=== PATIENT | male | born 1970 | race Caucasian/White ===

== ENCOUNTER 2019-11-24 13:20 | Inpatient (IN) | payer OTHER ==
[~2019-11-24] VITALS: Ht 175.3 cm; Wt 69.1 kg
[2019-11-24] MEDS ORDERED: RISP1 PO (14:29)
[2019-11-24 14:41] LABS: BASOPHILS % (AUTO) 0.6 % (0.0-2.0); EOSINOPHILS % (AUTO) 6.4 % (1.0-6.0); HEMATOCRIT 42.9 % (41-53); HEMOGLOBIN 14.4 g/dL (13.5-17.5); LYMPHOCYTES # (AUTO) 1.9 K/uL (1.0-4.8); LYMPHOCYTES % (AUTO) 30.4 % (22.0-44.0); MEAN CORPUSCULAR HEMOGLOBIN 31.4 pg (26.0-34.0); MEAN CORPUSCULAR HGB CONC 33.6 G/dL (31.0-37.0); MEAN CORPUSCULAR VOLUME 93 fL (80-100); MONOCYTES # (AUTO) 0.5 K/uL (0.1-1.0); MONOCYTES % (AUTO) 8.3 % (2.0-9.0); NEUTROPHILS # (AUTO) 3.5 K/uL (1.8-7.7); NEUTROPHILS % (AUTO) 54.3 % (40.0-70.0); PLATELET COUNT (AUTO) 231 K/uL (150-450); RED CELL DISTRIBUTION WIDTH 13.1 % (11.5-14.5)
[2019-11-24] MEDS ORDERED: ACETAMINOPHEN 325 MG TABLET PO PRN (14:45)
[2019-11-24] MEDS ORDERED: ONDANSETRON HCL 4 MG/2 ML VIAL IVP PRN ×2 (14:45→21:45)
[2019-11-24 14:49] LABS: ANION GAP 4 mmol/L (8-16); CARBON DIOXIDE 31 mmol/L (22-29); CHLORIDE 102 mmol/L (98-107); GLOMERULAR FILTR. RATE CALC > 60 mL/min (>60); GLUCOSE,RANDOM 104 mg/dL (70-110); POTASSIUM 4.5 mmol/L (3.5-5.1); SODIUM SERUM 137 mmol/L (136-145); UREA NITROGEN, BLOOD 14 mg/dL (7-18)
[2019-11-24 14:55] LABS: ALANINE AMINOTRANSFERASE 24 U/L (12-78); ALBUMIN 3.8 g/dL (3.4-5.0); ALKALINE PHOSPHATASE 100 U/L (46-116); ASPARTATE AMINOTRANSFERASE 18 U/L (15-37); BILIRUBIN,TOTAL 0.2 mg/dL (0.1-1.0); TOTAL PROTEIN, SERUM 7.7 g/dL (6.4-8.2)
[2019-11-24] MEDS ORDERED: INFLUENZA VIRUS VACCINE QVS 2019-20 (3YR+)/PF 60 MCG/0.5 ML SYRINGE IM ONE (16:15)
[2019-11-24 16:27] VITALS: BP 138/102
[2019-11-24 18:24] LABS: AMPHET/METH SCREEN,URINE NEGATIVE (NEGATIVE); BARBITURATE SCREEN, URINE NEGATIVE (NEGATIVE); BENZODIAZEPINES SCREEN,URINE NEGATIVE (NEGATIVE); CANNABINOID SCREEN,URINE NEGATIVE (NEGATIVE); COCAINE SCREEN,URINE NEGATIVE (NEGATIVE); METHADONE SCREEN, URINE NEGATIVE (NEGATIVE); OPIATE SCREEN,URINE NEGATIVE (NEGATIVE); PHENCYCLIDINE SCREEN,URINE NEGATIVE (NEGATIVE)
[2019-11-24 20:42] VITALS: BP 111/64
[2019-11-24] MEDS ORDERED: MAGNESIUM SULFATE 2 GM/WATER 50 ML IV PRN (21:45)
[2019-11-24] MEDS ORDERED: POTASSIUM CHL 10 MEQ/WATER 50 ML IV PRN (21:45)
[2019-11-24] MEDS ORDERED: 0.9% SODIUM CHLORIDE 10 ML SYRINGE IVP PRN (21:45)
[2019-11-24] MEDS ORDERED: POTASSIUM CHLORIDE 20 MEQ ER TABLET PO PRN (21:45)
[2019-11-24] MEDS ORDERED: MAGNESIUM SULFATE 4 GM/WATER 100 ML IV PRN (21:45)
[2019-11-24] MEDS: ZOLPIDEM TARTRATE 5 MG TABLET PO PRN (23:49)
[2019-11-25 05:32] VITALS: BP 96/72
[2019-11-25 07:36] LABS: BASOPHILS % (AUTO) 0.3 % (0.0-2.0); EOSINOPHILS % (AUTO) 4.8 % (1.0-6.0); HEMATOCRIT 43.9 % (41-53); LYMPHOCYTES % (AUTO) 31.9 % (22.0-44.0); MEAN CORPUSCULAR HEMOGLOBIN 31.7 pg (26.0-34.0); MEAN CORPUSCULAR HGB CONC 34.1 G/dL (31.0-37.0); MEAN CORPUSCULAR VOLUME 93 fL (80-100); MONOCYTES # (AUTO) 0.5 K/uL (0.1-1.0); MONOCYTES % (AUTO) 7.7 % (2.0-9.0); NEUTROPHILS # (AUTO) 3.5 K/uL (1.8-7.7); NEUTROPHILS % (AUTO) 55.3 % (40.0-70.0); PLATELET COUNT (AUTO) 244 K/uL (150-450); RED BLOOD CELL COUNT(AUTO) 4.73 MIL/uL (4.50-5.90); RED CELL DISTRIBUTION WIDTH 13.3 % (11.5-14.5)
[2019-11-25 07:44] VITALS: BP 136/77
[2019-11-25 07:50] LABS: ANION GAP 6 mmol/L (8-16); CALCIUM, TOTAL 8.3 mg/dL (8.8-10.5); CARBON DIOXIDE 28 mmol/L (22-29); CHLORIDE 103 mmol/L (98-107); GLOMERULAR FILTR. RATE CALC > 60 mL/min (>60); GLUCOSE,RANDOM 89 mg/dL (70-110); POTASSIUM 3.8 mmol/L (3.5-5.1); SODIUM SERUM 137 mmol/L (136-145); UREA NITROGEN, BLOOD 15 mg/dL (7-18)
[2019-11-25] MEDS: DOCUSATE SODIUM 100 MG CAPSULE PO SCH ×2 (09:07→20:09)
[2019-11-25] MEDS: PANTOPRAZOLE SODIUM 40 MG DR TABLET PO SCH (09:07)
[2019-11-25] MEDS ORDERED: RisperiDONE 2 MG TABLET PO SCH (12:15)
[2019-11-25 15:29] VITALS: BP 115/75
[2019-11-25] MEDS: MAGNESIUM OXIDE 400 MG TABLET PO PRN (18:15)
[2019-11-25 19:59] VITALS: BP 119/88
[2019-11-26] MEDS: MAGNESIUM OXIDE 400 MG TABLET PO PRN (08:10)
[2019-11-26] MEDS: PANTOPRAZOLE SODIUM 40 MG DR TABLET PO SCH (08:10)
[2019-11-26] MEDS: DOCUSATE SODIUM 100 MG CAPSULE PO SCH ×2 (08:11→21:13)
[2019-11-26 08:54] VITALS: BP 116/75
[2019-11-26 16:20] VITALS: BP 131/54
[2019-11-26 19:32] VITALS: BP 127/79
[2019-11-27 05:39] VITALS: BP 111/85
[2019-11-27] MEDS: PANTOPRAZOLE SODIUM 40 MG DR TABLET PO SCH (08:11)
[2019-11-27] MEDS: DOCUSATE SODIUM 100 MG CAPSULE PO SCH ×2 (08:11→20:19)
[2019-11-27 08:47] VITALS: BP 122/90
[2019-11-27 16:05] VITALS: BP 129/75
[2019-11-27 20:06] VITALS: BP 107/75
[2019-11-28 05:08] VITALS: BP 125/82
[2019-11-28] MEDS: DOCUSATE SODIUM 100 MG CAPSULE PO SCH ×2 (08:17→20:49)
[2019-11-28] MEDS: PANTOPRAZOLE SODIUM 40 MG DR TABLET PO SCH (08:17)
[2019-11-28 09:05] VITALS: BP 118/80
[2019-11-28 12:36] LABS: GLUCOMETER DEV NAME(LOC) 6N.2; GLUCOSE,POINT OF CARE 94 MG/DL (70-110)
[2019-11-28] MEDS: RisperiDONE 2 MG TABLET PO SCH ×2 (14:32→20:49)
[2019-11-28 15:42] VITALS: BP 115/80
[2019-11-28 20:52] VITALS: BP 111/80
[2019-11-29 04:45] VITALS: BP 119/73
[2019-11-29 08:18] VITALS: BP 140/76
[2019-11-29] MEDS: RisperiDONE 2 MG TABLET PO SCH ×2 (08:42→20:55)
[2019-11-29] MEDS: PANTOPRAZOLE SODIUM 40 MG DR TABLET PO SCH (08:43)
[2019-11-29] MEDS: DOCUSATE SODIUM 100 MG CAPSULE PO SCH ×2 (08:43→20:55)
[2019-11-29 15:50] VITALS: BP 118/92
[2019-11-29 20:17] VITALS: BP 120/76
[2019-11-30 04:44] VITALS: BP 118/71
[2019-11-30 07:47] VITALS: BP 107/76
[2019-11-30] MEDS: RisperiDONE 2 MG TABLET PO SCH (08:21)
[2019-11-30] MEDS: DOCUSATE SODIUM 100 MG CAPSULE PO SCH ×2 (08:22→20:28)
[2019-11-30] MEDS: PANTOPRAZOLE SODIUM 40 MG DR TABLET PO SCH (08:22)
[2019-11-30 15:30] VITALS: BP 114/78
[2019-11-30 19:30] VITALS: BP 128/73
[2019-11-30] MEDS: RisperiDONE CONC 2 MG/2 ML SOLUTION ORAL.SYG PO SCH (20:28)
[2019-12-01 04:07] VITALS: BP 127/82
[2019-12-01 09:28] VITALS: BP 125/78
[2019-12-01] MEDS: DOCUSATE SODIUM 100 MG CAPSULE PO SCH ×2 (09:54→21:00)
[2019-12-01] MEDS: PANTOPRAZOLE SODIUM 40 MG DR TABLET PO SCH (09:54)
[2019-12-01] MEDS: RisperiDONE CONC 2 MG/2 ML SOLUTION ORAL.SYG PO SCH ×2 (09:54→21:00)
[2019-12-01 20:05] VITALS: BP 110/89
[2019-12-02 04:32] VITALS: BP 116/80
[2019-12-02] MEDS: PANTOPRAZOLE SODIUM 40 MG DR TABLET PO SCH (09:00)
[2019-12-02] MEDS: RisperiDONE CONC 2 MG/2 ML SOLUTION ORAL.SYG PO SCH ×2 (09:00→21:00)
[2019-12-02] MEDS: DOCUSATE SODIUM 100 MG CAPSULE PO SCH ×2 (09:00→21:00)
[2019-12-02 09:02] VITALS: BP 105/75
[2019-12-02] MEDS ORDERED: HALOPERIDOL LACTATE 5 MG/ML VIAL IM ONE (13:45)
[2019-12-02] MEDS ORDERED: LORazepam 2 MG/ML VIAL IM ONE (13:45)
[2019-12-02] MEDS ORDERED: DiphenhydrAMINE HCL 50 MG/ML VIAL IM ONE (13:45)
[2019-12-02] MEDS ORDERED: LORazepam 2 MG/ML VIAL ONE (13:46)
[2019-12-02] MEDS ORDERED: HALOPERIDOL LACTATE 5 MG/ML VIAL ONE (13:46)
[2019-12-02] MEDS ORDERED: DiphenhydrAMINE HCL 50 MG/ML VIAL ONE (13:47)
[2019-12-02 16:39] VITALS: BP 104/71
[2019-12-02 20:29] VITALS: BP 117/71
[2019-12-03 04:33] VITALS: BP 113/71
[2019-12-03 07:51] VITALS: BP 113/77
[2019-12-03] MEDS: DOCUSATE SODIUM 100 MG CAPSULE PO SCH ×2 (09:00→21:00)
[2019-12-03] MEDS: RisperiDONE CONC 2 MG/2 ML SOLUTION ORAL.SYG PO SCH ×2 (09:00→21:00)
[2019-12-03] MEDS: PANTOPRAZOLE SODIUM 40 MG DR TABLET PO SCH (09:00)
[2019-12-03 15:53] VITALS: BP 124/82
[2019-12-03] MEDS ORDERED: HALOPERIDOL LACTATE 5 MG/ML VIAL IM ONE ×2 (17:00→17:15)
[2019-12-03] MEDS ORDERED: LORazepam 2 MG/ML VIAL IM ONE (17:00)
[2019-12-03] MEDS ORDERED: DiphenhydrAMINE HCL 50 MG/ML VIAL IM ONE (17:00)
[2019-12-03 20:28] VITALS: BP 121/67
[2019-12-04 03:53] VITALS: BP 126/100
[2019-12-04 08:38] VITALS: BP 112/75
[2019-12-04] MEDS: DOCUSATE SODIUM 100 MG CAPSULE PO SCH ×2 (08:54→21:00)
[2019-12-04] MEDS: RisperiDONE CONC 2 MG/2 ML SOLUTION ORAL.SYG PO SCH ×2 (08:54→21:00)
[2019-12-04] MEDS: PANTOPRAZOLE SODIUM 40 MG DR TABLET PO SCH (08:54)
[2019-12-04 20:15] VITALS: BP 110/73
[2019-12-05 05:00] VITALS: BP 112/71
[2019-12-05] MEDS: RisperiDONE CONC 2 MG/2 ML SOLUTION ORAL.SYG PO SCH ×2 (07:36→20:50)
[2019-12-05] MEDS: DOCUSATE SODIUM 100 MG CAPSULE PO SCH ×2 (07:36→20:49)
[2019-12-05] MEDS: PANTOPRAZOLE SODIUM 40 MG DR TABLET PO SCH (07:36)
[2019-12-05 07:47] VITALS: BP 135/83
[2019-12-05 15:00] VITALS: BP 119/78
[2019-12-05 20:02] VITALS: BP 119/72
[2019-12-06 05:32] VITALS: BP 121/80
[2019-12-06 07:20] VITALS: BP 123/79
[2019-12-06] MEDS: RisperiDONE CONC 2 MG/2 ML SOLUTION ORAL.SYG PO SCH ×2 (09:00→21:00)
[2019-12-06] MEDS: PANTOPRAZOLE SODIUM 40 MG DR TABLET PO SCH (09:00)
[2019-12-06] MEDS: DOCUSATE SODIUM 100 MG CAPSULE PO SCH ×2 (09:00→21:00)
[2019-12-06 15:00] VITALS: BP 127/79
[2019-12-06 19:30] VITALS: BP 122/75
[2019-12-07 05:39] VITALS: BP 110/67
[2019-12-07 07:42] VITALS: BP 121/74
[2019-12-07] MEDS: DOCUSATE SODIUM 100 MG CAPSULE PO SCH ×2 (09:00→20:54)
[2019-12-07] MEDS: RisperiDONE CONC 2 MG/2 ML SOLUTION ORAL.SYG PO SCH ×2 (09:00→20:54)
[2019-12-07] MEDS: PANTOPRAZOLE SODIUM 40 MG DR TABLET PO SCH (09:00)
[2019-12-07 16:10] VITALS: BP 110/71
[2019-12-07 19:30] VITALS: BP 107/70
[2019-12-08 04:15] VITALS: BP 118/82
[2019-12-08 08:27] VITALS: BP 123/81
[2019-12-08] MEDS: DOCUSATE SODIUM 100 MG CAPSULE PO SCH ×2 (08:37→20:08)
[2019-12-08] MEDS: PANTOPRAZOLE SODIUM 40 MG DR TABLET PO SCH (08:37)
[2019-12-08] MEDS: RisperiDONE CONC 2 MG/2 ML SOLUTION ORAL.SYG PO SCH ×2 (08:38→20:08)
[2019-12-08 15:42] VITALS: BP 119/84
[2019-12-08 19:36] VITALS: BP 122/68
[2019-12-09 05:17] VITALS: BP 116/81
[2019-12-09 07:20] VITALS: BP 123/74
[2019-12-09] MEDS: DOCUSATE SODIUM 100 MG CAPSULE PO SCH ×3 (08:35→20:07)
[2019-12-09] MEDS: PANTOPRAZOLE SODIUM 40 MG DR TABLET PO SCH (08:35)
[2019-12-09] MEDS: RisperiDONE CONC 2 MG/2 ML SOLUTION ORAL.SYG PO SCH ×3 (08:35→20:07)
[2019-12-09 15:04] VITALS: BP 108/61
[2019-12-10 06:11] VITALS: BP 120/76
[2019-12-10 07:09] VITALS: BP 118/73
[2019-12-10] MEDS: PANTOPRAZOLE SODIUM 40 MG DR TABLET PO SCH (08:09)
[2019-12-10] MEDS: DOCUSATE SODIUM 100 MG CAPSULE PO SCH ×3 (08:09→20:21)
[2019-12-10] MEDS: RisperiDONE CONC 2 MG/2 ML SOLUTION ORAL.SYG PO SCH ×2 (08:09→20:21)
[2019-12-10 15:20] VITALS: BP 112/74
[2019-12-10 19:34] VITALS: BP 118/82
[2019-12-11 05:31] VITALS: BP 111/70
[2019-12-11] MEDS: PANTOPRAZOLE SODIUM 40 MG DR TABLET PO SCH (08:18)
[2019-12-11] MEDS: RisperiDONE CONC 2 MG/2 ML SOLUTION ORAL.SYG PO SCH ×2 (08:18→21:27)
[2019-12-11] MEDS: DOCUSATE SODIUM 100 MG CAPSULE PO SCH ×2 (08:18→21:00)
[2019-12-11 08:33] VITALS: BP 122/81
[2019-12-11 15:37] VITALS: BP 130/67
[2019-12-11 19:19] VITALS: BP 113/72
[2019-12-12 05:40] VITALS: BP 109/70
[2019-12-12 08:21] VITALS: BP 119/77
[2019-12-12] MEDS: PANTOPRAZOLE SODIUM 40 MG DR TABLET PO SCH (09:00)
[2019-12-12] MEDS: DOCUSATE SODIUM 100 MG CAPSULE PO SCH ×2 (09:00→20:50)
[2019-12-12] MEDS: RisperiDONE CONC 2 MG/2 ML SOLUTION ORAL.SYG PO SCH ×2 (09:00→20:50)
[2019-12-12 11:50] VITALS: BP 120/67
[2019-12-12] MEDS ORDERED: HALOPERIDOL LACTATE 5 MG/ML VIAL IM PRN (16:15)
[2019-12-12 18:16] VITALS: BP 120/78
[2019-12-12 20:31] VITALS: BP 118/68
[2019-12-13 05:25] VITALS: BP 121/70
[2019-12-13] MEDS: DOCUSATE SODIUM 100 MG CAPSULE PO SCH ×2 (08:01→19:40)
[2019-12-13] MEDS: RisperiDONE CONC 2 MG/2 ML SOLUTION ORAL.SYG PO SCH ×2 (08:01→21:05)
[2019-12-13] MEDS: PANTOPRAZOLE SODIUM 40 MG DR TABLET PO SCH (08:01)
[2019-12-13 08:32] VITALS: BP 106/74
[2019-12-13 15:06] VITALS: BP 111/81
[2019-12-13 20:25] VITALS: BP 116/75
[2019-12-14 05:15] VITALS: BP 119/76
[2019-12-14] MEDS: DOCUSATE SODIUM 100 MG CAPSULE PO SCH (08:23)
[2019-12-14] MEDS: PANTOPRAZOLE SODIUM 40 MG DR TABLET PO SCH (08:24)
[2019-12-14] MEDS: RisperiDONE CONC 2 MG/2 ML SOLUTION ORAL.SYG PO SCH ×2 (08:24→21:31)
[2019-12-14 08:32] VITALS: BP 114/78
[2019-12-14 12:45] VITALS: BP 109/74
[2019-12-14 16:06] VITALS: BP 111/71
[2019-12-14 19:48] VITALS: BP 120/72
[2019-12-15] MEDS: ACETAMINOPHEN 325 MG TABLET PO PRN (04:22)
[2019-12-15 04:26] VITALS: BP 106/71
[2019-12-15 07:13] VITALS: BP 110/78
[2019-12-15] MEDS: RisperiDONE CONC 2 MG/2 ML SOLUTION ORAL.SYG PO SCH ×2 (11:10→21:20)
[2019-12-15] MEDS: PANTOPRAZOLE SODIUM 40 MG DR TABLET PO SCH (11:10)
[2019-12-15 15:15] VITALS: BP 100/66
[2019-12-15 19:36] VITALS: BP 111/73
[2019-12-16] MEDS: ZOLPIDEM TARTRATE 5 MG TABLET PO PRN (00:51)
[2019-12-16 04:28] VITALS: BP 115/66
[2019-12-16 07:29] VITALS: BP 99/67
[2019-12-16] MEDS: RisperiDONE CONC 2 MG/2 ML SOLUTION ORAL.SYG PO SCH ×2 (09:24→20:39)
[2019-12-16] MEDS: PANTOPRAZOLE SODIUM 40 MG DR TABLET PO SCH (09:24)
[2019-12-16 15:05] VITALS: BP 111/67
[2019-12-16 20:44] VITALS: BP 119/72
[2019-12-17] MEDS: ZOLPIDEM TARTRATE 5 MG TABLET PO PRN (03:51)
[2019-12-17 04:22] VITALS: BP 123/75
[2019-12-17 07:43] VITALS: BP 100/69
[2019-12-17] MEDS: RisperiDONE CONC 2 MG/2 ML SOLUTION ORAL.SYG PO SCH ×2 (08:13→20:35)
[2019-12-17] MEDS: PANTOPRAZOLE SODIUM 40 MG DR TABLET PO SCH (08:13)
[2019-12-17 15:00] VITALS: BP 110/72
[2019-12-17 19:25] VITALS: BP_SYST 105; BP_SYST 118; BP_DIAS 67; BP_DIAS 71
[2019-12-18 05:06] VITALS: BP 110/80
[2019-12-18] MEDS: PANTOPRAZOLE SODIUM 40 MG DR TABLET PO SCH (08:14)
[2019-12-18] MEDS: RisperiDONE CONC 2 MG/2 ML SOLUTION ORAL.SYG PO SCH ×2 (08:14→21:40)
[2019-12-18 11:01] VITALS: BP 130/77
[2019-12-18 15:55] VITALS: BP 107/73
[2019-12-18 20:39] VITALS: BP 92/59
[2019-12-19] MEDS: ZOLPIDEM TARTRATE 5 MG TABLET PO PRN (03:03)
[2019-12-19 05:37] VITALS: BP 102/67
[2019-12-19 07:27] VITALS: BP 116/73
[2019-12-19 07:34] VITALS: BP 116/73
[2019-12-19] MEDS: PANTOPRAZOLE SODIUM 40 MG DR TABLET PO SCH (08:36)
[2019-12-19] MEDS: RisperiDONE CONC 2 MG/2 ML SOLUTION ORAL.SYG PO SCH ×2 (08:36→21:45)
[2019-12-19 15:22] VITALS: BP 110/63
[2019-12-19 16:16] VITALS: BP 111/67
[2019-12-19 19:54] VITALS: BP 119/79
[2019-12-20] MEDS: ZOLPIDEM TARTRATE 5 MG TABLET PO PRN (00:35)
[2019-12-20 03:25] VITALS: BP 103/71
[2019-12-20 08:16] VITALS: BP 109/74
[2019-12-20] MEDS ORDERED: RisperiDONE CONC 2 MG/2 ML SOLUTION ORAL.SYG PO SCH (09:00)
[2019-12-20] MEDS: RisperiDONE CONC 3 MG/3 ML SOLUTION ORAL.SYG PO SCH ×2 (09:11→19:52)
[2019-12-20] MEDS: PANTOPRAZOLE SODIUM 40 MG DR TABLET PO SCH (09:11)
[2019-12-20 15:10] VITALS: BP 102/68
[2019-12-20 19:42] VITALS: BP 121/70
[2019-12-21 05:48] VITALS: BP 114/80
[2019-12-21 07:53] VITALS: BP 107/77
[2019-12-21] MEDS: RisperiDONE CONC 3 MG/3 ML SOLUTION ORAL.SYG PO SCH ×2 (08:12→20:58)
[2019-12-21] MEDS: PANTOPRAZOLE SODIUM 40 MG DR TABLET PO SCH (08:12)
[2019-12-21 15:47] VITALS: BP 116/74
[2019-12-22 04:57] VITALS: BP 109/65
[2019-12-22 07:40] VITALS: BP 104/71
[2019-12-22] MEDS: RisperiDONE CONC 3 MG/3 ML SOLUTION ORAL.SYG PO SCH ×2 (09:04→21:39)
[2019-12-22] MEDS: PANTOPRAZOLE SODIUM 40 MG DR TABLET PO SCH (09:04)
[2019-12-22 16:16] VITALS: BP 112/77
[2019-12-22 21:40] VITALS: BP 110/69
[2019-12-22] MEDS: ZOLPIDEM TARTRATE 5 MG TABLET PO PRN (21:49)
[2019-12-23 04:25] VITALS: BP 113/76
[2019-12-23 07:20] VITALS: BP 115/73
[2019-12-23] MEDS: RisperiDONE CONC 3 MG/3 ML SOLUTION ORAL.SYG PO SCH ×2 (08:37→20:48)
[2019-12-23] MEDS: PANTOPRAZOLE SODIUM 40 MG DR TABLET PO SCH (08:37)
[2019-12-23 15:32] VITALS: BP 138/76
[2019-12-23 19:30] VITALS: BP 126/74
[2019-12-23] MEDS: ZOLPIDEM TARTRATE 5 MG TABLET PO PRN (20:48)
[2019-12-24 04:48] VITALS: BP 128/72
[2019-12-24 07:33] VITALS: BP 119/83
[2019-12-24] MEDS: PANTOPRAZOLE SODIUM 40 MG DR TABLET PO SCH (07:55)
[2019-12-24] MEDS: RisperiDONE CONC 3 MG/3 ML SOLUTION ORAL.SYG PO SCH ×2 (07:56→20:57)
[2019-12-24 15:42] VITALS: BP 106/60
[2019-12-24 20:51] VITALS: BP 122/76
[2019-12-24] MEDS: ZOLPIDEM TARTRATE 5 MG TABLET PO PRN (20:56)
[2019-12-25 04:00] VITALS: BP 98/64
[2019-12-25 07:25] VITALS: BP 118/66
[2019-12-25] MEDS: PANTOPRAZOLE SODIUM 40 MG DR TABLET PO SCH (07:51)
[2019-12-25] MEDS: RisperiDONE CONC 3 MG/3 ML SOLUTION ORAL.SYG PO SCH ×2 (07:51→20:50)
[2019-12-25 15:15] VITALS: BP 107/71
[2019-12-25 19:45] VITALS: BP 124/78
[2019-12-25] MEDS: ZOLPIDEM TARTRATE 5 MG TABLET PO PRN (20:53)
[2019-12-26 04:30] VITALS: BP 118/72
[2019-12-26 08:12] VITALS: BP 100/64
[2019-12-26] MEDS: PANTOPRAZOLE SODIUM 40 MG DR TABLET PO SCH (08:25)
[2019-12-26] MEDS: RisperiDONE CONC 3 MG/3 ML SOLUTION ORAL.SYG PO SCH ×2 (08:25→20:28)
[2019-12-26 13:46] VITALS: BP 112/69
[2019-12-26 15:43] VITALS: BP 107/70
[2019-12-26] MEDS: ZOLPIDEM TARTRATE 5 MG TABLET PO PRN (20:30)
[2019-12-26 20:46] VITALS: BP 109/67
[2019-12-27 05:45] VITALS: BP 114/68
[2019-12-27] MEDS: ACETAMINOPHEN 325 MG TABLET PO PRN (06:09)
[2019-12-27 08:10] VITALS: BP 104/66
[2019-12-27] MEDS: PANTOPRAZOLE SODIUM 40 MG DR TABLET PO SCH (08:45)
[2019-12-27] MEDS: RisperiDONE CONC 3 MG/3 ML SOLUTION ORAL.SYG PO SCH ×2 (08:45→20:24)
[2019-12-27 16:37] VITALS: BP 123/74
[2019-12-27] MEDS ORDERED: HydrOXYzine PAMOATE 25 MG CAPSULE PO PRN (18:30)
[2019-12-27] MEDS ORDERED: HALOPERIDOL 10 MG TABLET PO PRN (18:30)
[2019-12-27] MEDS ORDERED: HALOPERIDOL 5 MG TABLET PO PRN (18:45)
[2019-12-27] MEDS: ZOLPIDEM TARTRATE 5 MG TABLET PO PRN (20:24)
[2019-12-27 20:32] VITALS: BP 132/76
[2019-12-28 04:16] VITALS: BP 111/76
[2019-12-28 07:48] VITALS: BP 108/73
[2019-12-28] MEDS: RisperiDONE CONC 3 MG/3 ML SOLUTION ORAL.SYG PO SCH (08:11)
[2019-12-28] MEDS: PANTOPRAZOLE SODIUM 40 MG DR TABLET PO SCH (08:11)
[2019-12-28] MEDS: ACETAMINOPHEN 325 MG TABLET PO PRN (11:52)
[2019-12-28] MEDS ORDERED: ACET-2247 PO (12:38)
[2019-12-28 15:40] VITALS: BP 118/73
== END 2019-12-28 17:01 | DRG 885 ==
LOC: EMS 13:22 → 6S 14:31
PROVIDERS: ADMIT Hospitalist; ATTEND Internal Medicine
DX: F20.9 Schizophrenia, unspecified (principal); R45.851 Suicidal ideations; F32.9 Major depressive disorder, single episode, unspecified; F41.9 Anxiety disorder, unspecified; F17.210 Nicotine dependence, cigarettes, uncomplicated; Z91.19 Patient's noncompliance with other medical treatment and regimen; Z79.899 Other long term (current) drug therapy
CPT/HCPCS: 83735; 87045; G0480; J1200; J1630; J2060

== ENCOUNTER 2020-03-13 12:39 | Inpatient (IN) | payer OTHER ==
[~2020-03-13] VITALS: Ht 175.3 cm; Wt 67.7 kg
[~2020-03-13 12:39] MED LIST: ACET-2247 PO; RISP1TAB27 PO
[2020-03-13 15:05] LABS: AMPHET/METH SCREEN,URINE NEGATIVE (NEGATIVE); BARBITURATE SCREEN, URINE NEGATIVE (NEGATIVE); BENZODIAZEPINES SCREEN,URINE NEGATIVE (NEGATIVE); CANNABINOID SCREEN,URINE NEGATIVE (NEGATIVE); COCAINE SCREEN,URINE NEGATIVE (NEGATIVE); METHADONE SCREEN, URINE NEGATIVE (NEGATIVE); OPIATE SCREEN,URINE NEGATIVE (NEGATIVE); PHENCYCLIDINE SCREEN,URINE NEGATIVE (NEGATIVE)
[2020-03-13 15:53] LABS: BASOPHILS % (AUTO) 0.3 % (0.0-2.0); EOSINOPHILS % (AUTO) 2.6 % (1.0-6.0); HEMATOCRIT 38.5 % (41-53); HEMOGLOBIN 13.2 g/dL (13.5-17.5); LYMPHOCYTES # (AUTO) 2.1 K/uL (1.0-4.8); LYMPHOCYTES % (AUTO) 28.7 % (22.0-44.0); MEAN CORPUSCULAR HEMOGLOBIN 32.5 pg (26.0-34.0); MEAN CORPUSCULAR HGB CONC 34.2 G/dL (31.0-37.0); MEAN CORPUSCULAR VOLUME 95 fL (80-100); MONOCYTES # (AUTO) 0.5 K/uL (0.1-1.0); MONOCYTES % (AUTO) 6.8 % (2.0-9.0); NEUTROPHILS # (AUTO) 4.5 K/uL (1.8-7.7); NEUTROPHILS % (AUTO) 61.6 % (40.0-70.0); PLATELET COUNT (AUTO) 300 K/uL (150-450); RED BLOOD CELL COUNT(AUTO) 4.06 MIL/uL (4.50-5.90); RED CELL DISTRIBUTION WIDTH 13.3 % (11.5-14.5)
[2020-03-13 16:00] VITALS: BP 119/77
[2020-03-13 16:07] LABS: ANION GAP 10 mmol/L (8-16); CALCIUM, TOTAL 8.7 mg/dL (8.8-10.5); CARBON DIOXIDE 28 mmol/L (22-29); CHLORIDE 105 mmol/L (98-107); CREATININE 0.62 mg/dL (0.60-1.30); GLOMERULAR FILTR. RATE CALC > 60 mL/min (>60); GLUCOSE,RANDOM 96 mg/dL (70-110); SODIUM SERUM 143 mmol/L (136-145); UREA NITROGEN, BLOOD 14 mg/dL (7-18)
[2020-03-13 16:13] LABS: ALANINE AMINOTRANSFERASE 18 U/L (12-78); ALBUMIN 3.8 g/dL (3.4-5.0); ALKALINE PHOSPHATASE 61 U/L (46-116); ASPARTATE AMINOTRANSFERASE 16 U/L (15-37); BILIRUBIN,TOTAL 0.4 mg/dL (0.1-1.0); TOTAL PROTEIN, SERUM 7.5 g/dL (6.4-8.2)
[2020-03-13 20:00] VITALS: BP 118/73
[2020-03-13] MEDS ORDERED: MAGNESIUM SULFATE 2 GM/WATER 50 ML IV PRN (22:45)
[2020-03-13] MEDS ORDERED: ACETAMINOPHEN 325 MG TABLET PO PRN ×2 (22:45)
[2020-03-13] MEDS ORDERED: POTASSIUM CHLORIDE 20 MEQ ER TABLET PO PRN (22:45)
[2020-03-13] MEDS ORDERED: ONDANSETRON HCL 4 MG/2 ML VIAL IVP PRN (22:45)
[2020-03-13] MEDS ORDERED: POTASSIUM CHL 10 MEQ/WATER 50 ML IV PRN (22:45)
[2020-03-13] MEDS ORDERED: MAGNESIUM OXIDE 400 MG TABLET PO PRN (22:45)
[2020-03-13] MEDS ORDERED: MAGNESIUM SULFATE 4 GM/WATER 100 ML IV PRN (22:45)
[2020-03-13] MEDS: RisperiDONE 3 MG TABLET PO SCH (23:35)
[2020-03-13] MEDS: HEPARIN SODIUM,PORCINE 5,000 UNITS/ML VIAL SQ SCH ×2 (23:36→23:50)
[2020-03-14] MEDS: ZOLPIDEM TARTRATE 5 MG TABLET PO PRN (01:53)
[2020-03-14 04:32] VITALS: BP 115/80
[2020-03-14 07:56] LABS: BASOPHILS % (AUTO) 0.8 % (0.0-2.0); EOSINOPHILS % (AUTO) 3.3 % (1.0-6.0); HEMATOCRIT 43.3 % (41-53); HEMOGLOBIN 14.1 g/dL (13.5-17.5); LYMPHOCYTES % (AUTO) 30.5 % (22.0-44.0); MEAN CORPUSCULAR HGB CONC 32.6 G/dL (31.0-37.0); MEAN CORPUSCULAR VOLUME 95 fL (80-100); MONOCYTES # (AUTO) 0.5 K/uL (0.1-1.0); MONOCYTES % (AUTO) 8.1 % (2.0-9.0); NEUTROPHILS # (AUTO) 3.8 K/uL (1.8-7.7); NEUTROPHILS % (AUTO) 57.3 % (40.0-70.0); PLATELET COUNT (AUTO) 313 K/uL (150-450); RED BLOOD CELL COUNT(AUTO) 4.55 MIL/uL (4.50-5.90); RED CELL DISTRIBUTION WIDTH 13.2 % (11.5-14.5)
[2020-03-14 07:57] VITALS: BP 104/67
[2020-03-14 08:13] LABS: ANION GAP 8 mmol/L (8-16); CALCIUM, TOTAL 8.9 mg/dL (8.8-10.5); CARBON DIOXIDE 28 mmol/L (22-29); CHLORIDE 105 mmol/L (98-107); CREATININE 0.64 mg/dL (0.60-1.30); GLOMERULAR FILTR. RATE CALC > 60 mL/min (>60); GLUCOSE,RANDOM 88 mg/dL (70-110); POTASSIUM 4.5 mmol/L (3.5-5.1); SODIUM SERUM 141 mmol/L (136-145); UREA NITROGEN, BLOOD 11 mg/dL (7-18)
[2020-03-14] MEDS: RisperiDONE 3 MG TABLET PO SCH ×2 (08:41→21:08)
[2020-03-14] MEDS: PANTOPRAZOLE SODIUM 40 MG DR TABLET PO SCH (08:41)
[2020-03-14] MEDS: HEPARIN SODIUM,PORCINE 5,000 UNITS/ML VIAL SQ SCH ×2 (08:50→16:22)
[2020-03-14 19:45] VITALS: BP 114/78
[2020-03-15] MEDS: HEPARIN SODIUM,PORCINE 5,000 UNITS/ML VIAL SQ SCH ×6 (00:17→23:26)
[2020-03-15 05:02] VITALS: BP 111/86
[2020-03-15] MEDS: RisperiDONE 3 MG TABLET PO SCH ×2 (08:01→20:23)
[2020-03-15] MEDS: PANTOPRAZOLE SODIUM 40 MG DR TABLET PO SCH (08:01)
[2020-03-15 08:48] VITALS: BP 114/83
[2020-03-15 15:10] VITALS: BP 121/81
[2020-03-15 19:22] VITALS: BP 145/78
[2020-03-16 04:47] VITALS: BP 121/79
[2020-03-16] MEDS: HEPARIN SODIUM,PORCINE 5,000 UNITS/ML VIAL SQ SCH ×3 (07:57→23:07)
[2020-03-16] MEDS: PANTOPRAZOLE SODIUM 40 MG DR TABLET PO SCH (07:57)
[2020-03-16] MEDS: RisperiDONE 3 MG TABLET PO SCH ×2 (07:57→20:36)
[2020-03-16 08:33] VITALS: BP 120/70
[2020-03-16 19:04] VITALS: BP 130/77
[2020-03-17 05:30] VITALS: BP 129/72
[2020-03-17 07:17] VITALS: BP 133/82
[2020-03-17] MEDS: HEPARIN SODIUM,PORCINE 5,000 UNITS/ML VIAL SQ SCH ×3 (08:35→23:42)
[2020-03-17] MEDS: RisperiDONE 3 MG TABLET PO SCH ×2 (08:36→20:27)
[2020-03-17] MEDS: PANTOPRAZOLE SODIUM 40 MG DR TABLET PO SCH (08:36)
[2020-03-17 15:34] VITALS: BP 126/78
[2020-03-17 20:00] VITALS: BP 118/76
[2020-03-18 04:16] VITALS: BP 119/87
[2020-03-18 07:29] VITALS: BP 131/73
[2020-03-18] MEDS: HEPARIN SODIUM,PORCINE 5,000 UNITS/ML VIAL SQ SCH ×3 (08:00→23:52)
[2020-03-18] MEDS: PANTOPRAZOLE SODIUM 40 MG DR TABLET PO SCH (08:22)
[2020-03-18] MEDS: RisperiDONE 3 MG TABLET PO SCH ×2 (08:22→20:45)
[2020-03-18 15:31] VITALS: BP 122/79
[2020-03-18 20:15] VITALS: BP 104/70
[2020-03-19 04:15] VITALS: BP 111/64
[2020-03-19] MEDS: HEPARIN SODIUM,PORCINE 5,000 UNITS/ML VIAL SQ SCH ×3 (08:00→23:22)
[2020-03-19] MEDS: PANTOPRAZOLE SODIUM 40 MG DR TABLET PO SCH (08:26)
[2020-03-19] MEDS: RisperiDONE 3 MG TABLET PO SCH ×2 (08:26→19:57)
[2020-03-19 11:43] VITALS: BP 120/74
[2020-03-19 16:10] VITALS: BP 116/72
[2020-03-19 20:07] VITALS: BP 121/79
[2020-03-20 04:49] VITALS: BP 117/79
[2020-03-20 07:34] VITALS: BP 112/72
[2020-03-20] MEDS: HEPARIN SODIUM,PORCINE 5,000 UNITS/ML VIAL SQ SCH ×2 (08:00→16:00)
[2020-03-20] MEDS: RisperiDONE 3 MG TABLET PO SCH ×2 (08:03→22:13)
[2020-03-20] MEDS: PANTOPRAZOLE SODIUM 40 MG DR TABLET PO SCH (08:03)
[2020-03-20 11:35] VITALS: BP 109/77
[2020-03-20 15:03] VITALS: BP 121/75
[2020-03-20 19:19] VITALS: BP 124/76
[2020-03-20] MEDS: ZOLPIDEM TARTRATE 5 MG TABLET PO PRN (22:13)
[2020-03-21] MEDS: ZOLPIDEM TARTRATE 5 MG TABLET PO PRN (00:02)
[2020-03-21 05:33] VITALS: BP 119/83
[2020-03-21 07:27] VITALS: BP 128/69
[2020-03-21] MEDS: HEPARIN SODIUM,PORCINE 5,000 UNITS/ML VIAL SQ SCH ×3 (08:00→16:00)
[2020-03-21] MEDS: PANTOPRAZOLE SODIUM 40 MG DR TABLET PO SCH (08:08)
[2020-03-21] MEDS: RisperiDONE 3 MG TABLET PO SCH (08:08)
[2020-03-21 15:19] VITALS: BP 112/74
== END 2020-03-21 16:41 | DRG 443 ==
LOC: EMS 12:42 → 6S 15:19
PROVIDERS: ADMIT Internal Medicine; ATTEND Internal Medicine
DX: K75.9 Inflammatory liver disease, unspecified (principal); K21.9 Gastro-esophageal reflux disease without esophagitis; F25.9 Schizoaffective disorder, unspecified; Z91.14 Patient's other noncompliance with medication regimen; Z87.891 Personal history of nicotine dependence
CPT/HCPCS: 83735; G0480; J1644